=== PATIENT | male | born 1980 | race Caucasian/White ===

== ENCOUNTER 2019-10-24 08:14 | Emergency (ER) | payer SELFPAY ==
[~2019-10-24] VITALS: Ht 172.7 cm; Wt 102.1 kg
[2019-10-24] MEDS ORDERED: IBUPROFEN 600 MG TABLET PO ONE ×2 (08:29→08:30)
--- NOTE | 2019-10-24 08:33 | NUR ---
PICKED UP BY GRACIE CRUZ VIA [facility] FOR CT SCAN
[2019-10-24 09:28] VITALS: BP 131/77
--- NOTE | 2019-10-24 09:28 | NUR ---
C-COLLAR REMOVED, PATIENT ABLE TO MOVE NECK AND HEAD. PATIENT A/OX4, DENIES PAIN AT THIS TIME. Patient discharged to home in stable condition. Written and verbal after care instructions given. Patient verbalizes understanding of instruction.
== END 2019-10-24 09:29 | disposition home or self-care (01) ==
LOC: ER 08:16
DX: S10.83XA Contusion of other specified part of neck, initial encounter (principal); R51 Headache; L73.1 Pseudofolliculitis barbae; E11.9 Type 2 diabetes mellitus without complications; Z60.2 Problems related to living alone; W18.09XA Striking against other object with subsequent fall, initial encounter; Y93.B9 Activity, other involving muscle strengthening exercises; Y92.488 Other paved roadways as the place of occurrence of the external cause; Y99.8 Other external cause status
CPT/HCPCS: 70450-TC; 72125-TC